=== PATIENT | female | born 1960 | race Caucasian/White ===

== ENCOUNTER 2017-07-14 00:05 | Emergency (ER) | payer MEDICAID, OTHER ==
[~2017-07-14] VITALS: Ht 160 cm; Wt 110.0 kg
[2017-07-14] MEDS ORDERED: ONDANSETRON 4MG ODT PO ONE (03:45)
[2017-07-14] MEDS ORDERED: KETOROLAC 30MG/ML VIAL IM ONE (03:45)
[2017-07-14 05:08] VITALS: BP 132/72
== END 2017-07-14 06:18 | disposition home or self-care (01) ==
LOC: ER 00:06
DX: J34.0 Abscess, furuncle and carbuncle of nose (principal); B95.62 Methicillin resistant Staphylococcus aureus infection as the cause of diseases classified elsewhere; F17.200 Nicotine dependence, unspecified, uncomplicated
CPT/HCPCS: 96372; 99283; J1885; Q0162

== ENCOUNTER 2018-10-15 23:44 | Emergency (ER) | payer MEDICAID, OTHER ==
[~2018-10-15] VITALS: Ht 167.6 cm; Wt 64.0 kg
[2018-10-16 08:34] LABS: BASOPHILS % 0.8 % (0.0-2.0); EOSINOPHILS % 4.1 % (0.0-5.0); HEMATOCRIT. 38.1 % (36.0-48.0); HEMOGLOBIN. 12.6 g/dL (12.0-16.0); MEAN CORPUSCULAR HEMOGLOBIN 29.2 pg (28.0-32.0); MEAN CORPUSCULAR VOLUME 88.2 fL (81.0-99.0); MONOCYTES % 11.4 % (2.0-8.0); NEUTROPHILS % 62.7 % (40.0-76.0); PLATELET 347 x1000/uL (130-400); RED BLOOD CELL COUNT 4.31 mill/uL (4.2-5.4); RED CELL DISTRIBUTION WIDTH 14.1 % (11.6-14.6)
[2018-10-16 08:39] LABS: CHLORIDE 100 mEq/L (98-107)
[2018-10-16 08:44] LABS: ETHANOL BLOOD < 10 mg/dL
[2018-10-16 10:33] LABS: CLARITY URINE TURBID (CLEAR); COLOR URINE YELLOW (YELLOW); KETONES URINE NEGATIVE (NEGATIVE); LEUKOCYTE ESTERASE URINE 2+ (NEGATIVE); NITRITE URINE NEGATIVE (NEGATIVE); OCCULT BLOOD URINE 3+ (NEGATIVE); PROTEIN URINE TRACE (NEGATIVE); SPECIFIC GRAVITY URINE 1.023 (1.005-1.030); UROBILINOGEN URINE 0.2 E.U./dL (0.2-1.0)
[2018-10-16 11:14] LABS: *AMPHETAMINES SCREEN URINE PRESUMTIVE POSITIVE (NEGATIVE); *BARBITURATES SCREEN URINE NEGATIVE (NEGATIVE); CANNABINOID URINE SCREEN NEGATIVE (NEGATIVE); METHADONE URINE SCREEN NEGATIVE (NEGATIVE); OPIATES URINE SCREEN NEGATIVE (NEGATIVE); PHENCYCLIDINE URINE SCREEN NEGATIVE (NEGATIVE)
[2018-10-16 11:15] LABS: *BENZODIAZEPINES SCREEN URINE NEGATIVE (NEGATIVE); *COCAINE SCREEN URINE NEGATIVE (NEGATIVE)
[2018-10-16] MEDS ORDERED: SULFAMETHOXAZOLE/TRIMETHOPRIM 800/160MG TABLET PO ONE (14:15)
[2018-10-16] MEDS ORDERED: IBUPROFEN 600MG TABLET PO STA (15:53)
[2018-10-17 11:22] VITALS: BP 122/88
== END 2018-10-17 13:15 | disposition home or self-care (01) ==
LOC: ER 10-16 00:12
DX: S20.211A Contusion of right front wall of thorax, initial encounter (principal); N39.0 Urinary tract infection, site not specified; F19.10 Other psychoactive substance abuse, uncomplicated; Z88.1 Allergy status to other antibiotic agents; Z59.0 Homelessness; Y04.8XXA Assault by other bodily force, initial encounter; Y93.89 Activity, other specified; Y92.89 Other specified places as the place of occurrence of the external cause; Y99.8 Other external cause status
CPT/HCPCS: 36415; 71045; 80048; 80305; 80307; 80329; 87077; 87186; 93005; 99284